=== PATIENT | female | born 1940 | race Caucasian/White ===

== ENCOUNTER → 2016-10-03 | Outpatient (CLI) | payer OTHER, BC | LOC: LAB 07:52 | PROVIDERS: ATTEND Nurse Practitioner Family | DX: E03.9 Hypothyroidism, unspecified (principal) | CPT/HCPCS: 36415; 84443 ==

== ENCOUNTER 2017-11-19 12:38 | Inpatient (IN) ==
[2017-11-19] MEDS ORDERED: Sodium Chloride 0.9% 1,000 ML PRIMARY IV ONE ×2 (12:46→12:50)
[2017-11-19] MEDS ORDERED: ONDANSETRON 4 MG/2 ML VIAL IVP ONE ×2 (12:46→12:50)
[2017-11-19] MEDS ORDERED: MORPHINE SULFATE 4 MG/1 ML IVP ONE ×2 (12:47→12:50)
--- NOTE | 2017-11-19 12:59 | PDOC ---
Hand / Wrist Injury HPI - General Chief Complaint: Upper Extremity Problem/Injury Stated Complaint: LEFT WRIST INJURY Date Seen by Provider: 11/19/17 Time Seen by Provider: 12:40 Source: POSITIVE: Patient Exam Limitations: POSITIVE: No limitations Nurse's Notes Reviewed & Considered: Yes - History of Present Illness Initial Comments: This is a well-developed, well-nourished, 77-year-old female with deformity and pain in her left wrist and distal left forearm. Patient was going up 2 steps from her garage into her home when she lost her balance and fell backwards onto the flat concrete. Her left arm was extended above her head when she landed resulting in her left hand and wrist contacting the same at first. She felt a snap and had this deformity of her distal left forearm with bleeding from the medial surface. She denies any other injury. Have you received a tetanus shot in the past 10 years?: Unknown Body Location Affected: REPORTS: Upper Extremity (L) Timing: REPORTS: Abrupt Duration: 1/2 hour Severity: Severe Location at Time of Onset: REPORTS: Home Context: REPORTS: Fall Location of Injury: REPORTS: Left, Wrist Quality: REPORTS: "Pain" Modifying Factors: REPORTS: Movement, Nothing Relieves Associated Symptoms: REPORTS: Arm (L), Loss of Power Any Prior Injuries Related to Current Complaint?: No - Patient Home Medications Home Medications: Home Medications Cholecalciferol (Vitamin D3) [Vitamin D-3] 1 cap PO DAILY #0 cap 06/04/12 Mometasone Furoate [Nasonex] 2 spr JESSICA DAILY PRN #1 bottle 06/18/15 Thuy [place]/Linoleic/Gamoleni [Evening [place] 1,000 Mg Sftg] 1,000 mg PO QD cap 10/27/16 Vit A/Vit C/Vit E/Zinc/Copper [Preservision Areds Softgel] 1 ea PO BID cap urea 40 % topical cream 1 applic TOPICAL BID #85 g 05/03/17 alprazolam 0.25 mg tablet 0.25 mg PO QHS PRN #30 tab 10/11/17 levothyroxine 75 mcg tablet 75 mcg PO QDAY #30 tab 11/08/17 - Patient Allergies Allergies/Adverse Reactions: Allergies 3 Allergy/AdvReac Type Severity Reaction Status Date / Time alendronate sodium Allergy Unknown unknown Verified 11/19/17 12:40 [From Fosamax] [id number]-Gfn-Gxg Reductase AdvReac leg pains Verified 11/19/17 12:40 Inhibitor Past Medical History - heen HEENT History: Denies History Cardiovascular History: Pacemaker, Other (please comment) Additional Cardiovasular History: HEART FAILURE IN 2003 WITH PACEMAKER NOW, REPLACED IN fall Respiratory History: Denies History Gastrointestinal History: Denies History Genitourinary History: Denies History Endocrine History: Hypothyroidism Musculoskeletal History: Osteoporosis Prosthesis or Implant: Yes (R ANKLE) Neurological History: Seizures, Other (please comment) Additional Neurological History: LAST SEIZURE 2007 Blood Disorders: Denies History Psychiatric History: Denies History History of Sexually Transmitted Diseases: No Female Reproductive History: Denies History Obstetrical History: Denies History Cancer History: Denies History In Past Year Been Physically Harmed or Verbally Threatened: No History of MDRO: No History of Other Communicable Diseases: No Tobacco Use: Never Smoker Alcohol Use: None In the Past 12 Months, Have Used or Abuse Any Substance: None Previous Surgical History: Yes Type / Date of Surgery: APPY/ COLONOSCOPY/ ENDOMETRIAL BX 05/2011/ PACEMAKER/ R ANKLE Anesthesia Reactions: No Malignant Hyperthermia: No Significant Family History: Cancer ROS - Limitations ROS Limitations: No Limitations Constitution: REPORTS: Denies Symptoms Cardiovascular: REPORTS: Denies Cardiac Symptoms Respiratory: REPORTS: Denies Resp Symptoms Neurological: REPORTS: Denies Neuro Symptoms Gastrointestinal: REPORTS: Denies GI Symptoms Endocrine: REPORTS: Denies Symptoms Musculoskeletal: REPORTS: Recent Injury, Other (Deformity of her left distal forearm and wrist with open wound on the medial surface.) Genitourinary: REPORTS: Denies Symptoms Eyes: REPORTS: Denies Symptoms ENT: REPORTS: Denies Symptoms Skin: REPORTS: Denies Skin Symptoms Lympathic: REPORTS: Denies Lympathic Symptoms Immunologic: POSITIVE: Denies Symptoms Psychiatric: POSITIVE: Denies Psych Symptoms Hand / Wrist Injury Exam - General Appearance General Appearance: POSITIVE: Alert, Cooperative, Moderate Distress - Extremities Upper Extremity: POSITIVE: No Evidence of FB, Swelling, Ecchymosis, Deformity ( deformity of the left distal forearm and wrist with an open wound on the medial surface that measures approximately 1 cm.), Limited ROM d/t Pain Neurovascular / Tendon: POSITIVE: Sensation Normal, Motor Normal, No Vascular Compromise Skin: POSITIVE: Warm, Dry - HEENT HEENT: POSITIVE: Head Inspection Nml, Eyes Inspection Nml, Ears Inspection Nml, Nose Inspection Nml, Oral/Dental Inspect. Nml, Pharynx Inspect. Nml, PERRL, EOMI Hand / Wrist Injury Progress - Results Reviewed by me Xrays/CTs/US Reviewed by me: Yes Discussed with Radiologist: Yes Lab Results Reviewed by Me: Yes CBC and BMP: 11/19/17 12:55 11/19/17 12:55 Lab Results:: Laboratory Results 3 11/19/17 11/19/17 11/19/17 12:55 12:55 12:55 WBC 8.10 RBC 4.90 Hgb 14.8 Hct 44.9 MCV 91.6 MCH 30.2 MCHC 33.0 RDW Std Deviation 44.5 RDW Coeff of Carey 13.4 Plt Count 378 H MPV 9.2 Immature Gran % (Auto) 0.2 Neut % (Auto) 61.2 Lymph % (Auto) 28.6 [place] % (Auto) 8.5 Eos % (Auto) 1.1 Baso % (Auto) 0.4 Immature Gran # (Auto) 0.02 Neut # (Auto) 4.95 Lymph # (Auto) 2.32 [place] # (Auto) 0.69 Eos # (Auto) 0.09 Baso # (Auto) 0.03 WBC Morphology Comment Normal morphology Plt Morphology Comment Normal morphology RBC Morph Comment Normal morphology PT 11.3 INR 1.10 Sodium 137 Potassium 4.3 Chloride 105 Carbon Dioxide 27 Anion Gap 5 BUN 12 Creatinine 0.5 BUN/Creatinine Ratio 24.00 H Glucose 111 H Calculated Osmolality 284.0 Calcium 10.1 Magnesium 2.1 Total Bilirubin 0.4 AST 17 ALT 25 Alkaline Phosphatase 67 Troponin I Handheld Total Protein 6.7 Albumin 4.2 Globulin 2.5 Albumin/Globulin Ratio 1.60 3 11/19/17 12:55 WBC RBC Hgb Hct MCV MCH MCHC RDW Std Deviation RDW Coeff of Carey Plt Count MPV Immature Gran % (Auto) Neut % (Auto) Lymph % (Auto) [place] % (Auto) Eos % (Auto) Baso % (Auto) Immature Gran # (Auto) Neut # (Auto) Lymph # (Auto) [place] # (Auto) Eos # (Auto) Baso # (Auto) WBC Morphology Comment Plt Morphology Comment RBC Morph Comment PT INR Sodium Potassium Chloride Carbon Dioxide Anion Gap BUN Creatinine BUN/Creatinine Ratio Glucose Calculated Osmolality Calcium Magnesium Total Bilirubin AST ALT Alkaline Phosphatase Troponin I Handheld 0.000 Total Protein Albumin Globulin Albumin/Globulin Ratio EKG Interpreted/Reviewed By Me:: Yes (normal sinus rhythm with rate of 73 beats a minute and no ST elevations.) EKG Interpretation:: POSITIVE: Normal Sinus Rhythm - Patient's Progress Pain Medication Addressed: POSITIVE: Yes Status: POSITIVE: Improved MDM / ED Course: Patient was evaluated, an IV started, blood drawn and sent to the lab for studies, x-ray and CT scan of her left wrist were obtained. Findings: X-ray shows a comminuted fracture the distal radius and ulna. CBC shows platelets of 378. CMP shows a glucose of 111. Troponin is 0.00. EKG shows a sinus rhythm with rate of 73 beats a minute and no ST elevations. CT scan of her wrist is pending. Assessment: Comminuted fracture that is open of the left wrist. Plan: Dr. Zamora, the on-call orthopedic surgeon, has come to the emergency room and evaluated the patient and is taking her to surgery for indicated procedures. Dr. Crocker, the on-call hospitalist, has come to the emergency room and has admitted the patient. CT scan was obtained and patient was taken to surgery after CT scan. Results are pending. - Consult Consult (If Yes, Name of Consulting MD & Time Called): Yes (Dr. Zamora, 14: 20hrs Dr. Mao 1420hrs.) Consulting MD will see pt:: POSITIVE: [facility] [place] Admit Counseled: POSITIVE: Patient, Family, RE: Lab Results, RE: Radiology Results, RE : DX Patient Care Time - Estimated PCT Patient Care Time (In Minutes): 45 Vital Signs - Recent Vital Signs Vital Signs: Vital Signs (Last 8 hours) Temp Pulse Resp BP Pulse Ox 11/19/17 13:06 95.2 F L 65 21 126/80 95 - VS Reviewed Vital Signs Reviewed: Yes Discharge Clinical Impression: Fracture of radius AND ulna, Open fracture of wrist Discharge Disposition: Admit to Inpatient Condition: Stable Date Decision to Admit to Inpatient: 11/19/17 Time Decision to Admit to Inpatient: 14:20
[2017-11-19 13:02] LABS: BASOPHILS # (AUTO) 0.03 10*3/UL; BASOPHILS % (AUTO) 0.4 % (0-1); EOSINOPHILS # (AUTO) 0.09 10*3/UL; EOSINOPHILS % (AUTO) 1.1 % (0-8); Hematocrit [HCT] 44.9 % (37.0-47.0); Hemoglobin [HGB] 14.8 g/dL (12.0-16.0); LYMPHOCYTES # (AUTO) 2.32 10*3/uL; MEAN CORPUSCULAR HEMOGLOBIN 30.2 PG (27-31); MEAN CORPUSCULAR VOLUME 91.6 FL (81-99); MEAN PLATELET VOLUME 9.2 FL (7.4-12.2); MONOCYTES # (AUTO) 0.69 10*3/UL (0.3-0.8); MONOCYTES % (AUTO) 8.5 % (5-15); NEUTROPHILS # (AUTO) 4.95 10*3/UL; NEUTROPHILS % (AUTO) 61.2 % (50-80)
[2017-11-19 13:05] LABS: PLATELET MORPHOLOGY COMMENT NORMAL MORPHOLOGY (NORM); RBC MORPHOLOGY COMMENT NORMAL MORPHOLOGY (NORM); WBC MORPHOLOGY COMMENT NORMAL MORPHOLOGY (NORM)
[2017-11-19 13:11] LABS: BLOOD UREA NITROGEN 12 mg/dL (7-22); SERUM ALBUMIN 4.2 g/dL (3.5-4.8)
[2017-11-19] MEDS ORDERED: HYDROmorphone 2 MG/1 ML IVP ONE (13:43)
--- NOTE | 2017-11-19 14:13 | DI ---
EXAM: XR Left Wrist, 2 Views CLINICAL HISTORY: ITS.REASON deformity s/p fall Physician Notes: Tech Comments: TECHNIQUE: Frontal and lateral views of the left wrist. COMPARISON: None FINDINGS: Bones/joints: Comminuted, displaced, impacted fractures of the distal left radius and ulna with intra-articular extension. Mild dorsal angulation of the distal fracture fragments. Osteopenia. Degenerative changes of the left first CMC joint and triscaphe joints. Soft tissues: Soft tissue swelling in the distal left forearm and about the left wrist. IMPRESSION: Comminuted, displaced, impacted fractures of the distal left radius and ulna with intra-articular extension. Mild dorsal angulation of the distal fracture fragments.
--- NOTE | 2017-11-19 14:28 | EKG ---
[address] [address] Measurements Intervals [place] Rate: 73 P: 70 FL: 213 QRS: 86 QRSD: 84 T: 115 QT: 393 QTc: 419 Interpretive Statements SINUS RHYTHM WITH FIRST DEGREE AV BLOCK Compared to ECG 07/26/2014 14:41:03 First degree AV block now present Electronically Signed On 11-20-17 08:09:59 MDT by Clay Morrison MD [email or web address]
--- NOTE | 2017-11-19 14:51 | PDOC ---
HPI - History of Present Illness Date of Service: 11/19/17 Time of Service: 14:46 Chief Complaint: Fall and left wrist pain History of Present Illness: This is a very pleasant 77-year-old female with prior history of pacemaker due to sinus pauses, demand pacemaker, osteoporosis, cholesterol problems, and other medical issues who comes in accompanied with her daughter today after a fall. She states that she was trying to walk into her home, and there is 3 steps to get into the home from the garage. She realized she forgot her Bible and turned around to go get it and fell straight down. She landed on her left arm. She did not hit her head. She did not lose consciousness. In the emergency room, she is found to have a left comminuted wrist fracture and it looks like it needs to be repaired in the operating room and apparently may be an open fracture. I spoke with emergency room physician and he stated to me that Dr. Zamora was aware and was on his way to do surgery today. Patient's not had this happen before. Dilaudid controlled her pain in the emergency room although she was mildly hypoxic with her. She denies any chest pain, shortness breath, kidney problems, or history of stroke. She has not had any dyspnea symptoms with activity. She meets more than 4 metabolic equivalents. Her resting EKG here today show some T-wave inversions in 1 and aVL. There are no ischemic findings on EKG. Of note, the patient recently suffered the loss of her on October 10. Past Medical History Medical History: 1. Osteoporosis, takes vitamin D during the winter. 2. History of seizure disorder although not on any antiepileptic drugs. 3. Pelvic organ prolapse. 4. Hypothyroidism. 5. Allergic rhinitis. 6. Hyperlipidemia. 7. "Leaky heart valve", recently had echocardiogram and this is just being followed clinically. Surgical History: 1. Status post cardiac pacemaker, placed first in 2002, and then battery changed in 2012 or so. 2. status post colonoscopy. 3. Status post appendectomy Pertinent Family History: Family history significant for diabetes. Past Social History: Patient is recently , has 2 children. Her daughter is her power of patent attorney. She does not smoke or drink alcohol. Tobacco Use: Never Smoker In the Past 12 Months, Have Used or Abuse Any of the Following Substance: None Alcohol Use: None Medication / Allergies Home Medications: Home Medications 3 Medication Instructions Recorded Confirmed Type Cholecalciferol (Vitamin D3) 1 cap PO DAILY #0 cap 06/04/12 09/27/17 History [Vitamin D-3] Aspirin [Aspir 81] 1 tab PO QD tab 05/20/13 09/27/17 History Ascorbic Acid [Vitamin C] 125 mg PO QD tab 01/20/14 09/27/17 History Mometasone Furoate [Nasonex] 2 spr JESSICA DAILY PRN #1 bottle 06/18/15 09/27/17 History Thuy [place]/Linoleic/Gamoleni 1,000 mg PO QD cap 10/27/16 09/27/17 History [Evening [place] 1,000 Mg Sftg] Levothyroxine Sodium 1 tab PO DAILY #30 tab 10/27/16 09/27/17 Clinic Vit A/Vit C/Vit E/Zinc/Copper 1 ea PO BID cap 10/27/16 09/27/17 History [Preservision Areds Softgel] terbinafine HCl 250 mg tablet 250 mg PO QDAY #90 tab 05/03/17 09/27/17 Rx urea 40 % topical cream 1 applic TOPICAL BID #85 g 05/03/17 09/27/17 Rx alprazolam 0.25 mg tablet 0.25 mg PO QHS PRN #30 tab 10/11/17 Rx levothyroxine 75 mcg tablet 75 mcg PO QDAY #30 tab 11/08/17 Rx Allergies/Adverse Reactions: Allergies 3 Allergy/AdvReac Type Severity Reaction Status Date / Time alendronate sodium Allergy Unknown unknown Verified 11/19/17 12:40 [From Fosamax] Zmbvdfb-Otj-Pkn Reductase AdvReac leg pains Verified 11/19/17 12:40 Inhibitor Review of Systems - Review of Systems All Systems: Reviewed & No Additional Complaints Except as Stated (I did a 12 point review systems and other than that discussed in history present illness the review systems is negative.) Exam - Vitals Vital Signs: Vital Signs Temperature 95.2 F Temperature Source Temporal Artery Scan Pulse Rate [Pulse Oximeter 65 Right] Respiratory Rate 21 Blood Pressure [Right Arm] 126/80 Pulse Ox 95 Oxygen Delivery Method Room Air Height 5 ft 2 in Weight 115 lb - General General Appearance: No Acute Distress, Cooperative - Head Head Exam: Normal Inspection, Normocephalic, Atraumatic - Eye Eye Exam: POSITIVE: No Scleral Icterus - ENT ENT Exam: POSITIVE: Mucous Membranes Moist - Neck Neck Exam: Normal Inspection, No Tenderness, No Lymphadenopathy, No Thyromegaly , JVP is not Raised - Respiratory Respiratory Exam: POSITIVE: Clear to Auscultation - Bilaterally, Breathing Non Labored - Cardiovascular Cardiovascular Exam: POSITIVE: RRR, No Murmur, No Clicks, No Gallops, No Rubs, No JVD - GI/Abdominal GI/Abdominal Exam: POSITIVE: Normal Bowel Sounds, Non Tender, Non Distended, Soft - Rectal Rectal Exam: POSITIVE: Deferred - External Exam: POSITIVE: Deferred Exam: POSITIVE: Deferred - Extremities Extremities Exam: POSITIVE: No Clubbing Present, No Edema Present, No Cyanosis Present, Joint Swelling (Left wrist is swelling, deformed, and obviously fractured.) - Neurological Neurological Exam: POSITIVE: Alert, Oriented x 3, No Facial Droop, Speech Intact / Clear Additional Neurological Exam Details: I deferred any muscle strength testing on the upper extremity on the left-hand side due to the nature of the injury. It does appear that distal neurovascular is are intact. She has good coloration in her hand and fingertips. - Psychiatric Psychiatric Exam: POSITIVE: Normal Affect, Normal Mood Results - Labs CBC and BMP: 11/19/17 12:55 11/19/17 12:55 Additional Lab Results: Laboratory Results 11/19/17 11/19/17 11/19/17 Range/Units 12:55 12:55 12:55 WBC 8.10 (4.8-10.8) 10^3/uL RBC 4.90 (4.20-5.40) 10^6/uL Hgb 14.8 (12.0-16.0) g/dL Hct 44.9 (37.0-47.0) % MCV 91.6 (81-99) FL MCH 30.2 (27-31) PG MCHC 33.0 (33-37) g/dL RDW Std Deviation 44.5 (39-50) fL RDW Coeff of Carey 13.4 (11.5-14.5) % Plt Count 378 H (140-350) 10*3/uL MPV 9.2 (7.4-12.2) FL Immature Gran % (Auto) 0.2 (0-5) % Neut % (Auto) 61.2 (50-80) % Lymph % (Auto) 28.6 (10-50) % [place] % (Auto) 8.5 (5-15) % Eos % (Auto) 1.1 (0-8) % Baso % (Auto) 0.4 (0-1) % Immature Gran # (Auto) 0.02 10*3/UL Neut # (Auto) 4.95 10*3/UL Lymph # (Auto) 2.32 10*3/uL [place] # (Auto) 0.69 (0.3-0.8) 10*3/UL Eos # (Auto) 0.09 10*3/UL Baso # (Auto) 0.03 10*3/UL WBC Morphology Comment Normal morphology (NORM) Plt Morphology Comment Normal morphology (NORM) RBC Morph Comment Normal morphology (NORM) PT 11.3 (9.7-11.4) secs INR 1.10 (0.00-5.90) N/A Sodium 137 (135-145) meq/L Potassium 4.3 (3.8-5.2) meq/L Chloride 105 (98-112) meq/L Carbon Dioxide 27 (23-33) meq/L Anion Gap 5 (5-20) BUN 12 (7-22) mg/dL Creatinine 0.5 (0.50-1.20) mg/dL BUN/Creatinine Ratio 24.00 H (6-20) Glucose 111 H (78-110) mg/dL Calculated Osmolality 284.0 (267-292) mOsm/kg Calcium 10.1 (8.7-10.7) mg/dL Magnesium 2.1 (1.6-2.4) mg/dL Total Bilirubin 0.4 (0.3-1.2) mg/dL AST 17 (8-39) IU/L ALT 25 (9-52) IU/L Alkaline Phosphatase 67 (38-126) IU/L Total Protein 6.7 (6.1-8.0) g/dL Albumin 4.2 (3.5-4.8) g/dL Globulin 2.5 (2.50-4.10) g/dL Albumin/Globulin Ratio 1.60 (1.3-2.0) mg/g - EKG Data -: EKG Interpreted by Me Rate: Normal EKG Shows Normal: Sinus Rhythm - EKG Data EKG Interpretation: Other (T-wave inversion in 1 and aVL. No evidence of ST elevation. Also T-wave version and V2. These look new compared to prior EKG on record here in 2014.) - Imaging Status: Image Reviewed by Me (I reviewed the wrist x-ray and forearm x-ray, there are some fractures there.) Assessment and Plan - Patient Problems (1) Fracture of radius AND ulna Current Visit: Yes Status: Acute Code(s): S52.90XA - Unspecified fracture of unspecified forearm, initial encounter for closed fracture; S52.209A - Unspecified fracture of shaft of unspecified ulna, initial encounter for closed fracture (2) Hypothyroidism Current Visit: Yes Status: Chronic Onset Date: ~1961 Qualifiers: Hypothyroidism type: unspecified Qualified Code(s): E03.9 - Hypothyroidism , unspecified (3) Hyperlipidemia Current Visit: Yes Status: Chronic Qualifiers: Hyperlipidemia type: unspecified Qualified Code(s): E78.5 - Hyperlipidemia , unspecified (4) Osteoporosis Current Visit: Yes Status: Chronic Onset Date: 09/21/04 Qualifiers: Osteoporosis type: age-related Presence of current pathological fracture: with current pathological fracture Encounter type: initial encounter Qualified Code(s): M80.00XA - Age-related osteoporosis with current pathological fracture, unspecified site, initial encounter for fracture - Assessment / Plan Additional Assessment/Plan Details: This fall sounds mechanical overall. But it appears that she will need surgery on her wrist, orthopedics has been notified and will see the patient in consultation. After surgery, we'll admit the patient for observation postoperatively, and have PT and OT ordered. From a medical standpoint, I think the patient should be cleared for surgery with postoperative risk stratification as appropriate. This is by AHA/ACC perioperative evaluation guidelines. I did note the T-wave inversions, but we'll check a troponin and I suspect that it will be negative. These findings are nonspecific, the patient has no chest pain, and I do not think are indicative of any ischemic issues at this time. Postoperatively, hopefully get her on some by mouth pain medications and advance her diet at that time. Nothing by mouth for now. We will put her on LR at 100 mL per hour heading into the operating room. Discussed CODE STATUS with patient and her daughter. She is full code for now. Consult orthopedics as mentioned. Plan above discussed with the patient and her daughter and they agreed with the plan.
[2017-11-19] MEDS ORDERED: Lactated Ringers 1,000 ML PRIMARY IV ONE (15:00)
[2017-11-19] MEDS ORDERED: BACITRACIN 50,000 UNIT VIAL IRRIG ONE (15:17)
[2017-11-19] MEDS ORDERED: Sodium Chloride 0.9% vial 20 ML ONE (15:17)
--- NOTE | 2017-11-19 15:19 | CONSULT ---
Consult Note - Consult Consult Date: 11/19/17 Reason for Consult: PreOp Consulation : Ortho Requesting Physician: Dr An Primary Care Provider: Libby Gillis MS, MANAGER WORK - History of Present Illness History of Present Illness: Patient is a 77-year-old oqezq-tqpy-csinralg female who was walking up some stairs fell backwards she is not exactly sure what she did but she thinks she may have put her hand down to break her fall with a left hand media pain discomfort and deformity this happened after she got back from nondenominational about 2 hours ago came in and found to have a fracture with an open component posteriorly. Patient notes a little numbness along the volar aspect of the fingers. And also has a history of osteoporosis. Patient denies loss of consciousness shortness of breath chest pain dizziness lightheadedness headache. Patient also notes she does not hurt anywhere else. Past Medical History Medical History: 1. Osteoporosis, takes vitamin D during the winter. 2. History of seizure disorder although not on any antiepileptic drugs. 3. Pelvic organ prolapse. 4. Hypothyroidism. 5. Allergic rhinitis. 6. Hyperlipidemia. 7. "Leaky heart valve", recently had echocardiogram and this is just being followed clinically. Surgical History: 1. Status post cardiac pacemaker, placed first in 2002, and then battery changed in 2012 or so. 2. status post colonoscopy. 3. Status post appendectomy Pertinent Family History: Family history significant for diabetes. Past Social History: Patient is recently , has 2 children. Her daughter is her power of traffic law attorney. She does not smoke or drink alcohol. Tobacco Use: Never Smoker In the Past 12 Months, Have Used or Abuse Any of the Following Substance: None Alcohol Use: None Medication / Allergies Home Medications: Home Medications 3 Medication Instructions Recorded Confirmed Type Cholecalciferol (Vitamin D3) 1 cap PO DAILY #0 cap 06/04/12 11/19/17 History [Vitamin D-3] Mometasone Furoate [Nasonex] 2 spr JESSICA DAILY PRN #1 bottle 06/18/15 11/19/17 History Thuy [place]/Linoleic/Gamoleni 1,000 mg PO QD cap 10/27/16 11/19/17 History [Evening [place] 1,000 Mg Sftg] Vit A/Vit C/Vit E/Zinc/Copper 1 ea PO BID cap 10/27/16 11/19/17 History [Preservision Areds Softgel] urea 40 % topical cream 1 applic TOPICAL BID #85 g 05/03/17 11/19/17 Rx alprazolam 0.25 mg tablet 0.25 mg PO QHS PRN #30 tab 10/11/17 11/19/17 Rx levothyroxine 75 mcg tablet 75 mcg PO QDAY #30 tab 11/08/17 11/19/17 Rx Allergies/Adverse Reactions: Allergies 3 Allergy/AdvReac Type Severity Reaction Status Date / Time alendronate sodium Allergy Unknown unknown Verified 11/19/17 12:40 [From Fosamax] Pbjking-Zvd-Ocz Reductase AdvReac leg pains Verified 11/19/17 12:40 Inhibitor Exam - Vitals Vital Signs: Vital Signs Temperature 95.2 F Temperature Source Temporal Artery Scan Pulse Rate [Pulse Oximeter 65 Right] Respiratory Rate 21 Blood Pressure [Right Arm] 126/80 Pulse Ox 95 Oxygen Delivery Method Room Air Height 5 ft 2 in Weight 52.163 kg Examination shows that the patient a well-developed well-nourished female in no apparent distress. She is alert and oriented 3 generally coordinated. Very appropriate with all questioning quick to answer. Examination shows that her right upper extremity lower extremity symptoms have good range of motion as well as head and neck able to move around nicely no pain with palpation of the right upper extremities or rhonchi clavicle regions are upper or lower back neck region or pelvis region no pain in the lower extremities left upper extremity with dinner fork deformity to the wrist open wound along the dorsal aspect of the wrist which keeps losing. Patient with decreased sensation along the median nerve distribution. There is some sensory but it is blunted and a little tingling as patient also thumb index middle and ring finger and small finger is normal sensory. She has brisk refill. Fair amount of swelling along the volar aspect though deformity in the region. Radiographs of the left wrist shows significant comminution of the radius and ulna with the marked deformity. Difficult to say if there is any intra- articular extension but this certainly displacement of the radius and the ulna. CT scan was ordered and is pending. Results - Labs CBC and BMP: 11/19/17 12:55 11/19/17 12:55 Assessment and Plan - Assessment / Plan Additional Assessment/Plan Details: Impression: Open grade 1 distal radius ulnar fracture left wrist. Plan: We'll proceed with a CT of the left wrist for better visualization of the fragments. I think initially we will proceed with irrigation debridement reduction and depending on the CT scan and the quality of the soft tissues may proceed with either splinting penetrating or possible open reduction internal fixation. We'll proceed along these lines at the current time options risks benefits discussed with the patient and her daughter who agree with the plan moving forward. I did discuss with him that if the tissues prohibitive proceeding with a more definitive approach we may need to do this on the delayed nature. Also discussed potential need for delay for other reasons for more definitive care moving forward they understand we'll proceed along these lines current goal is to perform irrigation debridement get her on IV antibiotics for 24 hours reduce this and if we can proceed with definitive care at the current time we will do that if not we will do definitive care of delayed basis. We discussed the patient's current condition and clinical findings as it pertains to the current situation. Surgical versus nonsurgical options risks and benefits were discussed and reviewed. Options moving forward include but are not limited to continued choice to live with their current condition; evaluate their current condition further with imaging studies and/or diagnostic testing, etc.; treat problem/problems with surgical versus nonsurgical methods. The patient demonstrates a clear understanding of our discussion. All questions were answered. Surgical versus nonsurgical options risks and benefits were Discussed and reviewed. Risks include but are not limited to bleeding, infection, neurovascular damage, wound problems, deep vein thromboses, pulmonary embolism, need for further surgery, and loss of life and limb. Certainly any surgical procedure may not improve symptoms and potentially could makes symptoms worse. There are no guarantees implied with the discussion of surgical treatment. All questions were answered and the patient wishes to proceed with surgical treatment.
[2017-11-19] MEDS ORDERED: ROPIVACAINE HCL 7.5 MG/1 ML - 20 ML ONE (15:22)
[2017-11-19] MEDS ORDERED: LIDOCAINE 2%/ EPI 1:200,000 - 20 ML VIAL ONE (15:22)
[2017-11-19] MEDS ORDERED: DEXAMETHASONE PF 10 MG/1 ML VIAL ONE (15:23)
[2017-11-19] MEDS ORDERED: MIDAZOLAM 5 MG/1 ML ONE (15:23)
[2017-11-19] MEDS ORDERED: LIDOCAINE W/ SODIUM BICARB 0.5 ML SYR ONE (16:08)
[2017-11-19] MEDS ORDERED: KETAMINE 100 MG/1 ML - 5 ML ONE (16:20)
[2017-11-19] MEDS ORDERED: PROPOFOL 10 MG/1 ML (200 MG/20 ML) VIAL IV ONE (16:20)
[2017-11-19] MEDS ORDERED: ceFAZolin 1 GM VIAL ONE (16:31)
[2017-11-19] MEDS ORDERED: ceFAZolin Inj 2 GM in Sodium Chloride 0.9% 100 ML IV ONE (16:33)
--- NOTE | 2017-11-19 17:02 | CRNA.PROGR ---
Anesthesia Time - Procedure/Recovery Time Start Date: 11/19/17 End Date: 11/19/17 Anesthesia : Time In: 16:21 Anesthesia : Time Out: 18:40 Anesthesia : Total Time: 139 - Block Time Start Date: 11/19/17 End Date: 11/19/17 PreOp Block : Time In: 16:01 PreOp Block : Time Out: 16:08 PreOp Block : Total Time: 7 - Total Anesthesia Time Total Anesthesia Time (minutes): 146 - Other Weight: 52.163 kg Height: 5 ft 2 in Body Mass Index (BMI): 21.0 Physical Status: P2 (age greater than 70) Anesthesia Type: Axillary Block
--- NOTE | 2017-11-19 17:04 | CRNA.PROCE ---
Nerve Block Documentation - - Safety Measures: Time Out Taken - - Type of Nerve Block Used: Left Axillary Block Position for Nerve Block: Supine Moniters Used During Block: EKG, SPO2, NIBP Sedation Used - Enter Amount in Comment Field [ANES.SEDAT]: Midazolam (mg): Yes (2 mg) Skin Prep Used: ChloroPrep (Twice) Draped: No Technique: Nerve Stimulator Nerve Block Needle Used: 40 mm ProBlk II Stimulation Hz: 1 Stimulation Staring mA: 1.6 Stimulation Ending mA: 0.6 Local Anesthetic - Enter Amt in Comment Field [ANES.LOCNB]: 2 % Xylocaine with Epinephrine 1:200,000 (mL): Yes (20 ml in 1.5 ml increments), Other Anesthetic: Yes (0.75% Ropivivaine 20 ml in 1.5 ml increments) Additives to Nerve Blocks: Dexamethasone (mg): Yes (10) - - PreOp Block : Time In: 16:01 PreOp Block : Time Out: 16:08 Anesthesia Time - Block Time PreOp Block : Time In: 16:01 PreOp Block : Time Out: 16:08 - Other Weight: 52.163 kg Height: 5 ft 2 in Body Mass Index (BMI): 21.0
--- NOTE | 2017-11-19 18:42 | ORTHO.OP ---
- - -: See Dictated Operative Report Procedure Codes - Upper Extremity Procedures Primary Wrist/Hand/Elbow Procedure Code: Other CPT Code(s) (CPT codes 03472, 66101, 63411)
--- NOTE | 2017-11-19 19:01 | CRNA.PROGR ---
Post Anesthesia Phase II - Post Anesthesia Phase II Patient Stable and Discharged To: Med/Surg Care Assumed By Surgeon: Jyaden Zamora MD Temperature: 99.3 F Pulse Rate: 87 Respiratory Rate: 23 Blood Pressure: 145/76 Pulse Ox: 97 Total Tamra Score at Discharge: 9 Post Anesthesia Discharge Criteria Met: Yes
[2017-11-19] MEDS ORDERED: MOMETASONE FUROATE ENOS PRN (19:15)
[2017-11-19] MEDS ORDERED: HYDROmorphone 2 MG/1 ML IVP PRN (19:15)
[2017-11-19] MEDS ORDERED: diphenhydrAMINE 25 MG CAPSULE PO PRN (19:15)
[2017-11-19] MEDS ORDERED: MAG HYDROX/AL HYDROX/SIMETH 30 ML SUSP PO PRN (19:15)
[2017-11-19] MEDS ORDERED: BISACODYL 10 MG SUPPOSITORY RECTAL PRN (19:15)
[2017-11-19] MEDS ORDERED: Lactated Ringers 1,000 ML PRIMARY IV SCH (19:15)
[2017-11-19] MEDS ORDERED: ACETAMINOPHEN 325 MG TABLET PO PRN (19:15)
[2017-11-19] MEDS ORDERED: CALCIUM CARBONATE 500 MG (TUMS) CHEWABLE TABLET PO PRN (19:15)
[2017-11-19] MEDS ORDERED: ONDANSETRON 4 MG/2 ML VIAL IVP PRN (19:15)
[2017-11-19] MEDS ORDERED: BISACODYL 5 MG TABLET PO PRN (19:15)
[2017-11-19] MEDS ORDERED: IBUPROFEN 400 MG TABLET PO PRN (19:15)
[2017-11-19] MEDS ORDERED: Prochlorperazine Tab 10 MG TAB PO PRN (19:15)
[2017-11-19] MEDS ORDERED: ALPRAZolam Tab 0.25 MG TABLET PO PRN (19:15)
[2017-11-19] MEDS ORDERED: Ondansetron ODT Tab 8 MG TAB PO PRN (19:15)
[2017-11-19] MEDS: HYDROcodone-APAP 7.5 MG-325 MG TABLET PO PRN (20:45)
[2017-11-19] MEDS: COPPER PO SCH (21:47)
[2017-11-19] MEDS: UREA 40% TOPICAL SCH (21:47)
[2017-11-19] MEDS: VIT C PO SCH (21:47)
[2017-11-19] MEDS: VIT E PO SCH (21:47)
[2017-11-19] MEDS: ZINC PO SCH (21:47)
[2017-11-19] MEDS: VIT A PO SCH (21:47)
[2017-11-20] MEDS: ceFAZolin Inj 2gm (Premix) 2 GM/50 ML BAG IV SCH ×2 (00:33→08:11)
[2017-11-20 00:39] VITALS: RESP 18
[2017-11-20] MEDS ORDERED: LEVOTHYROXINE 75 MCG TABLET PO SCH (05:30)
[2017-11-20] MEDS: VIT E PO SCH (08:11)
[2017-11-20] MEDS: COPPER PO SCH (08:11)
[2017-11-20] MEDS: VIT A PO SCH (08:11)
[2017-11-20] MEDS: ZINC PO SCH (08:11)
[2017-11-20] MEDS: VIT C PO SCH (08:11)
[2017-11-20] MEDS: UREA 40% TOPICAL SCH (08:12)
[2017-11-20] MEDS: HYDROcodone-APAP 7.5 MG-325 MG TABLET PO PRN ×2 (08:15→13:04)
--- NOTE | 2017-11-20 08:37 | DI ---
CT SCAN OF THE LEFT WRIST, 11/19/2017 2:11 PM : Clinical History: Comminuted left wrist fracture. Previous Exam: None at this facility. Scans are obtained from the distal forearm to the proximal phalanges without IV contrast. Sagittal an d coronal reformatted images are also generated. There is a severely comminuted fracture of the distal radius with multiple fracture fragments both do rsally and ventrally. There is loss of length of greater than 10 mm with "telescoping" of some of the fracture fragments into the proximal shaft. The distal radial fracture component is displaced dorsal ly one bone shaft diameter with approximately 25 degrees dorsal angulation. There is a comminuted fra cture of the distal ulna in the distal fracture fragment is dorsally angulated approximately 45 degre es and displaced one bone shaft diameter dorsally. There is also a fracture of the ulnar styloid. The re is osteoporosis indicating this probably is a fragility fracture. READIN. There is a severely comminuted fracture of the distal radius without intra-articular involvement. There is "telescoping" of fracture fragments into the main shaft with loss of length greater than 10 mm in dorsal angulation of the main distal fracture fragment by 25 degrees. The main distal fracture fragment is displaced dorsally one bone shaft diameter. 2. There is a comminuted fracture of the distal ulna and the distal fracture fragment is dorsally an gulated 45 degrees and displaced one bone shaft diameter dorsally. There is an associated ulnar stylo id fracture. 3. Severe osteoporosis. 3D RENDERING OF CT SCANS OF THE LEFT WRIST JOINT, 11/19/2017 2:11 PM: Clinical History: See above. Prior or Related Exam: None. The original raw data from the CT scans of this extremity are ported to the off-line [employer] workstati on for 3D rendering of the bony structures. The 3-D rendering confirms there is no intra-articular involvement of the distal radius. Additionally , multiple fracture fragments of the distal radius on the volar and dorsal aspect are well-defined an d demonstrate that there would be no stability for this fracture if it were treated with either close reduction or internal fixation. The ulnar fracture component is also visualized. Reading: Comminuted fractures of the distal radius and ulna as above.
[2017-11-20] MEDS ORDERED: [UNRECOGNIZED DRUG - OTHER] PO SCH (09:00)
[2017-11-20] MEDS ORDERED: CHOLECALCIFEROL 1000 IU TABLET PO SCH (09:00)
[2017-11-20 11:22] VITALS: BP 95/47; TEMP 97.7; O2SAT 93
--- NOTE | 2017-11-20 14:19 | PTI REPORT ---
Thank you for the referral of Laurie Petty. She was seen on 11/20/17 for an inpatient evaluation status post left wrist fracture. SUBJECTIVE: The patient is a 77-year-old female who states when she got home from [place]aoism yesterday around noon, she was walking up her two steps in her garage to get into her home, when she realized she forgot something in her vehicle. She turned to go back down the stairs and she states that she got twisted up on the top step and fell backwards. The patient states that she injured her left wrist with the fall and denies any other injury. The patient states that she was brought to the emergency room and an external fixator was placed on her left forearm as she is awaiting surgery in [place], [place]. The patient denies any previous falls over the last year and states that she is fairly healthy. She does have a pacemaker but otherwise is active in the community. She states that she does not normally use an assistive device to get around and she is independent with all of her ADLs and iADLs. She states that she lives by herself in [place] as her last month. The patient states that she has two steps into her house from the garage and she also has 13 stairs to her basement, but she does not usually go into the basement. PAST MEDICAL HISTORY: Past medical history can be found in the patient's medical record. OBJECTIVE FINDINGS: General observations: The patient was alert and oriented to setting upon PT arrival. The patient was sitting up in the chair with her left arm in a sling and propped up on pillows. Pain: The patient reported that she had just received pain medication and denied any pain at this time. Bed mobility: The patient was able to go from seated to supine position independently. She only required some assistance to prop up her left forearm onto a pillow once in bed. Transfers: The patient was able to move from a seated to standing position with stand by assist x1 for safety. The patient demonstrated good standing balance. The patient was able to transfer from stand to seated position independently. Balance: The patient was able to complete a Tinetti balance and gait assessment and scored as a LOW fall risk. Ambulation: The patient was able to ambulate 150 feet without use of assistive device with stand by assist x1 safely. ASSESSMENT: The patient has good rehab potential. Problem List: Left wrist fracture/orders for non weight-bearing of the left upper extremity Short-Term Goals: To be met by discharge from inpatient: Patient will be able to transfer from bed to stand safely and independently. Patient will be able to ambulate at least 150 feet without use of assistive device safely and independently. Patient will be able to ascend and descend at least 5 stairs safely and independently. Long-Term Goals: To be met following discharge from inpatient: Patient is awaiting surgery in [place], [place]. After that time, we will determine if she needs any further therapy. TREATMENT PLAN: Patient will be seen B.I.D during the week and one time per day over the weekend as an inpatient to address the above goals and objectives. INITIAL TREATMENT: Treatment today consisted of the initial evaluation activities only. The patient was left in bed with alarm set and call light within reach. Ice was placed on her forearm. BROOKE
--- NOTE | 2017-11-20 14:24 | DCSUMMARY ---
Hospitalization Summary Hospital Course: Final Discharge Diagnosis: Current Visit Problems Problem Status Onset Code Fracture of radius AND ulna Acute S52.90XA, S52.209A Open fracture of wrist Acute S62.109B Hypothyroidism Chronic ~1961 Hyperlipidemia Chronic Osteoporosis Chronic 09/21/04 Diagnostic Data, Laboratory Data, and Procedures of Signifigance: History and Physical pertinent to Admission: Past Medical History Medical History: 1. Osteoporosis, takes vitamin D during the winter. 2. History of seizure disorder although not on any antiepileptic drugs. 3. Pelvic organ prolapse. 4. Hypothyroidism. 5. Allergic rhinitis. 6. Hyperlipidemia. 7. "Leaky heart valve", recently had echocardiogram and this is just being followed clinically. Surgical History: 1. Status post cardiac pacemaker, placed first in 2002, and then battery changed in 2012 or so. 2. status post colonoscopy. 3. Status post appendectomy Pertinent Family History: Family history significant for diabetes. Past Social History: Patient is recently , has 2 children. Her daughter is her power of erisa attorney. She does not smoke or drink alcohol. Tobacco Use: Never Smoker In the Past 12 Months, Have Used or Abuse Any of the Following Substance: None Alcohol Use: None Course of Hospitalization: This very nice 77-year-old female, was walking up stairs fell backwards and had the wrist fracture which Dr. Zamora the operated on and repaired is been doing great by physical therapy she is able to do all the activities that are asked of her and now was given the degree and like to be discharged home. She will see Dr. Zenon garcia the hand specialist tomorrow this was arranged by Dr. Zamora. Denies any chest pain nausea vomiting discussed the case with physical therapy and her grandson and patient all in agreement and Dr. Zamora On the date of discharge, the patient was examined: Gen.: No acute distress, alert, nontoxic Heart: Regular rate and rhythm, no murmurs, clicks, gallops, or rubs Lungs: Clear to auscultation bilaterally, breathing is nonlabored Abdomen/GI: Normal tones on auscultation, soft, nontender, nondistended Musculoskeletal/extremities: No clubbing, cyanosis, or edema Vitals reviewed and are listed below Vital Signs (24 hrs) Temp Pulse Pulse Resp BP BP BP 11/20/17 11:20 97.7 F 86 18 95/47 11/20/17 07:00 74 11/20/17 06:55 97.9 F 74 18 99/65 11/20/17 05:00 97.8 F 69 114/75 11/20/17 00:37 98.0 F 78 18 116/71 11/19/17 20:19 97.7 F 81 17 158/85 11/19/17 19:45 85 16 175/89 11/19/17 19:26 97.4 F 84 16 111/88 11/19/17 19:17 97.8 F 81 16 111/89 11/19/17 19:01 99.3 F 87 23 145/76 11/19/17 19:01 97.9 F 69 18 143/72 11/19/17 18:56 64 11 L 149/74 11/19/17 18:51 72 15 141/73 11/19/17 18:46 68 23 140/71 11/19/17 18:41 73 25 H 140/86 11/19/17 18:36 97.1 F 70 14 142/72 11/19/17 16:41 99.3 F 87 23 145/76 11/19/17 15:42 97.9 F 88 15 126/60 Pulse Ox 11/20/17 11:20 93 11/20/17 07:00 11/20/17 06:55 95 11/20/17 05:00 95 11/20/17 00:37 93 11/19/17 20:19 94 11/19/17 19:45 94 11/19/17 19:26 91 11/19/17 19:17 94 11/19/17 19:01 97 11/19/17 19:01 95 11/19/17 18:56 95 11/19/17 18:51 95 11/19/17 18:46 95 11/19/17 18:41 94 11/19/17 18:36 96 11/19/17 16:41 97 11/19/17 15:42 96 Assessment and Plan: 1. As per discharge assessments above 2. Disposition: Home 3. Condition on discharge, stable and improved. 4. Diet: regular diet 5. Activities: resume normal activities 6. Follow-Up: 1. PCP 2. Dr. Yarbrough cut in the morning orthopedic hand specialist 7. Medications at the Time of Discharge: Home Medications 3 Medication Instructions Recorded Confirmed Type Cholecalciferol (Vitamin D3) 1 cap PO DAILY #0 cap 06/04/12 11/19/17 History [Vitamin D-3] Mometasone Furoate [Nasonex] 2 spr JESSICA DAILY PRN #1 bottle 06/18/15 11/19/17 History Thuy [place]/Linoleic/Gamoleni 1,000 mg PO QD cap 10/27/16 11/19/17 History [Evening [place] 1,000 Mg Sftg] Vit A/Vit C/Vit E/Zinc/Copper 1 ea PO BID cap 10/27/16 11/19/17 History [Preservision Areds Softgel] urea 40 % topical cream 1 applic TOPICAL BID #85 g 05/03/17 11/19/17 Rx alprazolam 0.25 mg tablet 0.25 mg PO QHS PRN #30 tab 10/11/17 11/19/17 Rx levothyroxine 75 mcg tablet 75 mcg PO QDAY #30 tab 11/08/17 11/19/17 Rx HYDROcodone/APAP 7.5/325 Tab 1 - 2 tab PO Q4H PRN #40 tab 11/20/17 Rx [[place] 7.5/325 Tab] 8. Time, care, counseling and coordination of care for this discharge is greater than 30 minutes. Exam - Vitals Vital Signs: Vital Signs Temperature 97.7 F Temperature Source Temporal Artery Scan Pulse Rate [Pulse Oximeter 86 Right] Pulse Rate 87 Respiratory Rate 18 Blood Pressure [right leg] 158/85 Blood Pressure [Right Arm] 95/47 Blood Pressure 145/76 Pulse Ox 93 Oxygen Flow Rate 1 Oxygen Delivery Method Room Air Height 5 ft 2 in Weight 111 lb 4.8 oz
--- NOTE | 2017-11-20 15:25 | PT.PROG ---
Progress Note Progress Note: S. Patient stated that she is feeling good this afternoon. O. Patient ambulated 150 feet around the nurses station and then ascended and descended 5 stairs then ambulated 50 feet back to her room where she was left in bed with alarm and call light. A. Patient tolerated ambulation and stair training very well, she was able to perform all activities with no pain or problems. P. Patient is cleared from therapy at this time.
--- NOTE | 2017-11-20 17:15 | ORTHO.PROG ---
Last Taken Vital Signs: Vital Signs - Last Taken Temperature 97.7 F 11/20/17 11:20 Pulse Rate 86 11/20/17 11:20 Respiratory Rate 18 11/20/17 11:20 Blood Pressure 95/47 11/20/17 11:20 Pulse Ox 93 11/20/17 11:20 Subjective: Patient doing well today pain controlled on oral medication Objective: Patient has external fixator and sugar tong splint in place dressing is clean and dry patient with a normal sensory exam to median and ulna she can straighten her fingers and gently flex him. Passive motion is good is more visits done slowly with no significant issues. Vital Signs (24 hrs) Temp Pulse Pulse Resp BP BP BP 11/20/17 11:20 97.7 F 86 18 95/47 11/20/17 07:00 74 11/20/17 06:55 97.9 F 74 18 99/65 11/20/17 05:00 97.8 F 69 114/75 11/20/17 00:37 98.0 F 78 18 116/71 11/19/17 20:19 97.7 F 81 17 158/85 11/19/17 19:45 85 16 175/89 11/19/17 19:26 97.4 F 84 16 111/88 11/19/17 19:17 97.8 F 81 16 111/89 11/19/17 19:01 99.3 F 87 23 145/76 11/19/17 19:01 97.9 F 69 18 143/72 11/19/17 18:56 64 11 L 149/74 11/19/17 18:51 72 15 141/73 11/19/17 18:46 68 23 140/71 11/19/17 18:41 73 25 H 140/86 11/19/17 18:36 97.1 F 70 14 142/72 Pulse Ox 11/20/17 11:20 93 11/20/17 07:00 11/20/17 06:55 95 11/20/17 05:00 95 11/20/17 00:37 93 11/19/17 20:19 94 11/19/17 19:45 94 11/19/17 19:26 91 11/19/17 19:17 94 11/19/17 19:01 97 11/19/17 19:01 95 11/19/17 18:56 95 11/19/17 18:51 95 11/19/17 18:46 95 11/19/17 18:41 94 11/19/17 18:36 96 Microbiology 11/19/17 17:12 Wrist - Left Gram Stain - Final 11/19/17 17:12 Wrist - Left Aerobic Culture - Preliminary Gram stain rare WBC no organisms seems Aerobic with"Haze" of growth re-incubated Assessment: Left open ulnar fracture with comminuted distal radius and ulnar fracture. Status post I and D of open ulnar fracture with placement of external fixator. Plan: Patient is finished 24 hours of IV antibiotics of cefazolin 2 g every 8 hours. Her culture was suspicious for a haze overgrowth which was reintubated and we' ll await those results. Patient was given discharge and she is doing fine on oral medications and we will have her get scheduled to see either Dr. Gan or Carri for possible more definitive treatment. I discussed the case with DR Gan and he is willing to see the patient sometime this week and we'll see about getting this set up thought that this may require some type of plating to see if it can be made a little bit better but he thought overall this was in a reasonable position at the current time but with the comminution may benefit from a volar plating leaving the external fixator in for a period of time I related this to the patient and she will follow up accordingly with a subspecialist.
[2017-11-21] MEDS ORDERED: SYNTHROID 75 MCG PO SCH (05:30)
--- NOTE | 2017-11-21 08:34 | OT AM DAY ---
Diagnosis : Left Wrist Fracture AM - Occupational Therapy O: The patient was issued a toilet seat with handles. P: No further therapy is indicated at this time. MTDD
== END 2017-11-20 15:19 | disposition home or self-care (01) | DRG 465 ==
LOC: ER 12:38 → OR 16:00 → MED/SURG 18:59
PROVIDERS: ADMIT Family Medicine; ATTEND Family Medicine